=== PATIENT | male | born 1970 | race Caucasian/White ===

== ENCOUNTER 2017-03-11 13:55 | Emergency (ER) | payer SELFPAY ==
[2017-03-11] MEDS ORDERED: CYCLOBENZAPRINE5 M1 PO (15:20)
[2017-03-11] MEDS ORDERED: NORCO 5-325 TA1 EACH PO (15:20)
== END 2017-03-11 15:43 ==
LOC: EDMED 13:55
DX: S39.012A Strain of muscle, fascia and tendon of lower back, initial encounter (principal); X50.1XXA Overexertion from prolonged static or awkward postures, initial encounter; Y93.64 Activity, baseball; Y99.8 Other external cause status
CPT/HCPCS: J1885; J2360